=== PATIENT | female | born 1970 | race African-American/Black ===

== ENCOUNTER 2018-11-09 04:17 | Inpatient (IN) | payer OTHER, MEDICAID ==
[~2018-11-09] VITALS: Ht 170.2 cm; Wt 137.9 kg
[2018-11-09] MEDS ORDERED: SODIUM CHLORIDE 0.9% 1,000 ML IV ONE (07:40)
[2018-11-09] MEDS ORDERED: ONDANSETRON HCL 4MG/2ML INJ IV STA (07:40)
[2018-11-09] MEDS ORDERED: MORPHINE SULFATE 4 MG/ML CPJ (NOT FOR IM USE) IV STA (07:40)
[2018-11-09 08:09] LABS: BASOPHILS % 0.5 % (0.0-2.0); EOSINOPHILS % 0.3 % (0.0-5.0); HEMATOCRIT. 39.9 % (36.0-48.0); HEMOGLOBIN. 12.9 g/dL (12.0-16.0); LYMPHOCYTES % 14.8 % (20.0-50.0); MEAN CORPUSCULAR HEMOGLOBIN 28.1 pg (28.0-32.0); MEAN CORPUSCULAR VOLUME 86.9 fL (81.0-99.0); MEAN PLATELET VOLUME 8.2 fl (7.4-10.4); MONOCYTES % 5.7 % (2.0-8.0); NEUTROPHILS % 78.7 % (40.0-76.0); PLATELET 367 x1000/uL (130-400); RED BLOOD CELL COUNT 4.59 mill/uL (4.2-5.4)
[2018-11-09 08:16] LABS: HCG SCREEN NEGATIVE
[2018-11-09 09:59] LABS: CHLORIDE 108 mEq/L (98-107)
[2018-11-09] MEDS ORDERED: ASPIRIN 325MG EC TABLET PO ONE (11:45)
[2018-11-09 14:00] VITALS: BP 136/72
[2018-11-09 14:27] VITALS: BP 136/72
[2018-11-09] MEDS ORDERED: DOCUSATE SODIUM 100MG CAPSULE PO PRN (14:30)
[2018-11-09] MEDS ORDERED: GUAIFENESIN 200MG/10ML SUGAR FREE UDC PO PRN (14:30)
[2018-11-09] MEDS ORDERED: CLONIDINE 0.1MG TABLET PO PRN (14:30)
[2018-11-09] MEDS ORDERED: ZOLPIDEM TARTRATE 5MG TABLET PO PRN (14:30)
[2018-11-09] MEDS ORDERED: ONDANSETRON HCL 4MG/2ML INJ IV PRN (14:30)
[2018-11-09] MEDS ORDERED: LORAZEPAM 0.5MG TABLET PO PRN (14:30)
[2018-11-09] MEDS ORDERED: NITROGLYCERIN 0.4MG TABLET SL SL PRN (14:30)
[2018-11-09] MEDS ORDERED: MAGNESIUM/ALUMINUM HYDROXIDE/SIMETHICONE 30ML UDC PO PRN (14:30)
[2018-11-09] MEDS ORDERED: KETOROLAC 15MG/ML VIAL IV PRN (14:30)
[2018-11-09] MEDS ORDERED: ACETAMINOPHEN 325MG TABLET PO PRN (14:30)
[2018-11-09] MEDS ORDERED: IPRATROPIUM/ALBUTEROL 0.5-3(2.5)MG/3ML NEB INH PRN (14:30)
[2018-11-09] MEDS ORDERED: SPIR25TA6 MT (14:47)
[2018-11-09] MEDS ORDERED: METH10TA7 MT (14:47)
[2018-11-09] MEDS ORDERED: LISI-604 MT (14:47)
[2018-11-09] MEDS ORDERED: ASPI-1079 PO (14:47)
[2018-11-09 15:02] LABS: T4 FREE 1.09 ng/dL (0.76-1.46)
[2018-11-09 16:00] VITALS: BP 114/48
[2018-11-09] MEDS: ASPIRIN 325MG EC TABLET PO SCH (16:42)
[2018-11-09] MEDS: SUCRALFATE 1 G/10 ML UDC PO SCH ×2 (16:42→21:44)
[2018-11-09] MEDS: ENOXAPARIN 40MG/0.4ML SYR SUBCUT SCH (16:43)
[2018-11-09] MEDS ORDERED: PNEUMOCOCCAL 23-VAL P-SAC VAC 0.5 ML IM ONE (18:00)
[2018-11-09] MEDS ORDERED: INFLUENZA VIRUS VACCINE(AFLURIA) 0.5ML SYR IM ONE (18:00)
[2018-11-09 20:00] VITALS: BP 129/78
[2018-11-09] MEDS: FAMOTIDINE 20MG TABLET PO SCH (21:44)
[2018-11-09] MEDS: METOPROLOL TARTRATE 25MG TABLET PO SCH (21:45)
[2018-11-09 23:28] LABS: CREATINE KINASE 201 IU/L (26-192)
[2018-11-09 23:29] LABS: CREATINE KINASE MB FRACTION 1.4 ng/mL (0.5-3.6)
[2018-11-10] VITALS: BP 119/66
[2018-11-10 04:00] VITALS: BP 99/54
[2018-11-10] MEDS: ENOXAPARIN 40MG/0.4ML SYR SUBCUT SCH (05:40)
[2018-11-10 06:52] LABS: CREATINE KINASE 169 IU/L (26-192)
[2018-11-10 06:53] LABS: CREATINE KINASE MB FRACTION 1.3 ng/mL (0.5-3.6)
[2018-11-10 08:00] VITALS: BP 118/71
[2018-11-10] MEDS: SUCRALFATE 1 G/10 ML UDC PO SCH (08:10)
[2018-11-10] MEDS: ASPIRIN 325MG EC TABLET PO SCH (08:10)
[2018-11-10] MEDS: FAMOTIDINE 20MG TABLET PO SCH (08:10)
[2018-11-10] MEDS: METOPROLOL TARTRATE 25MG TABLET PO SCH (08:13)
[2018-11-10 11:26] VITALS: BP 118/71
[2018-11-10 12:00] VITALS: BP 120/58
== END 2018-11-10 16:37 | disposition home or self-care (01) | DRG 203 ==
LOC: ER 04:17 → 7WST 11:37 → ENRESERV 12:32 → EDBEDREQ 12:33
PROVIDERS: ADMIT Internal Medicine; ATTEND Internal Medicine
DX: R07.89 Other chest pain (principal); E44.1 Mild protein-calorie malnutrition; E83.51 Hypocalcemia; E11.9 Type 2 diabetes mellitus without complications; E03.9 Hypothyroidism, unspecified; I10 Essential (primary) hypertension; Z79.82 Long term (current) use of aspirin; Z98.891 History of uterine scar from previous surgery; Z79.899 Other long term (current) drug therapy; Z68.42 Body mass index [BMI] 45.0-49.9, adult
CPT/HCPCS: 36415; 71045; 80061; 80320; 82550; 82553; 83036; 83880; 84439; 84443; 84484; 84703; 90686; 90732; 93005; 93970; 96374; 96375; 99285; J1650; J2270; J2405; J7030; G0480